=== PATIENT | female | born 1970 | race African-American/Black ===

== ENCOUNTER 2019-03-31 08:58 | Outpatient (CLI) | payer OTHER, SELFPAY ==
--- NOTE | 2019-03-31 | EST_ITS ---
Patient Info Name: Davion Massey Age: 48 years : 1970 Gender: Female Ht: 67 in Wt: 247 lbs BSA: 2.35 m2 Exam Date: 03/31/2019 9:40 AM Exam Location: [facility] Pulmonary Patient Status: Outpatient Admit Date: 03/31/2019 Staff Ordering Physician: PHYSICIAN NOT ON STAFF, NONSTAFF Preservative Filler Machine Operator: Ty Christopher RDCS, RT Attending Provider: SAMIR DELA CRUZ DO Exercise Technologist: Daysi Saldana RDCS Exercise Physician: Samir Dela Cruz DO Exam Type: CA stress echo Study Info Indications R07.9 - Chest pain, unspecified Treadmill exercise stress echocardiogram is performed. Summary 1. 1. Negative David exercise stress test for ischemic ST changes by ECG criteria. 2. 2. Reduced functional capacity, achieving 7 METs of workload. 3. 3. Appropriate HR response to exercise. 4. 4. Appropriate HR recovery at 1 minute post exercise. 5. 5. Negative stress echocardiogram for ischemia by wall motion analysis. 6. 6. Patient informed of the above results. Stress Echo Findings Left Ventricle Appropriate increase in LV endocardial thickening with systole. Appropriate augmentation of contractility with systole. No wall motion abnormality. Left Ventricle Normal LV systolic function, no wall motion abnormality. Protocol: David Stress ECG Details Stage: REST Duration (min): 2 min : 54 sec Speed (mph): 0.0 Grade (%): 0 HR (bpm): 64 SBP (mmHg): 122 DBP (mmHg): 93 METS: --- Stage: REST Duration (min): 15 min : 15 sec Speed (mph): 0.0 Grade (%): 0 HR (bpm): 74 SBP (mmHg): 122 DBP (mmHg): 93 METS: --- Stage: STAGE 1 Duration (min): 1 min : 0 sec Speed (mph): 1.7 Grade (%): 10 HR (bpm): 109 SBP (mmHg): 122 DBP (mmHg): 93 METS: --- Stage: STAGE 1 Duration (min): 2 min : 0 sec Speed (mph): 1.7 Grade (%): 10 HR (bpm): 137 SBP (mmHg): 122 DBP (mmHg): 93 METS: --- Stage: STAGE 1 Duration (min): 3 min : 0 sec Speed (mph): 1.7 Grade (%): 10 HR (bpm): 147 SBP (mmHg): 197 DBP (mmHg): 127 METS: --- Stage: STAGE 2 Duration (min): 1 min : 0 sec Speed (mph): 2.5 Grade (%): 12 HR (bpm): 154 SBP (mmHg): 197 DBP (mmHg): 127 METS: --- Stage: STAGE 2 Duration (min): 1 min : 31 sec Speed (mph): 0.0 Grade (%): 0 HR (bpm): 157 SBP (mmHg): 197 DBP (mmHg): 127 METS: --- Stage: RECOVERY Duration (min): 0 min : 28 sec Speed (mph): 0.0 Grade (%): 0 HR (bpm): 138 SBP (mmHg): 171 DBP (mmHg): 51 METS: --- Stage: RECOVERY Duration (min): 1 min : 28 sec Speed (mph): 0.0 Grade (%): 0 HR (bpm): 118 SBP (mmHg): 171 DBP (mmHg): 51 METS: --- Stage: RECOVERY Duration (min): 2 min : 28 sec Speed (mph): 0.0 Grade (%): 0 HR (bpm): 105 SBP (mmHg): 171 DBP (mmHg): 51 METS: --- Stage: RECOVERY Duration (min): 3 min : 28 sec Speed (mph): 0.0 Grade (%): 0 HR (bpm): 93
== END 2019-03-31 08:59 | disposition home or self-care (01) ==
DX: R07.9 Chest pain, unspecified (principal)
CPT/HCPCS: 93351

== ENCOUNTER 2023-09-09 08:44 | Outpatient (CLI) | payer OTHER, SELFPAY ==
--- NOTE | ~2023-09-09 | XR_ITS ---
EXAMINATION: XR barium swallow w SBFT DATE: 09/09/2023 10:22 INDICATION: Dysphagia TECHNIQUE: The patient drank thick barium, gas-producing crystals, and thin barium. Fluoroscopic spot radiographs of the hypopharynx, esophagus, stomach and proximal small bowel were obtained. Additiona l overhead radiographs were obtained during the transit through the small bowel. Spot fluoroscopic i mages of the small bowel were obtained upon contrast reaching the cecum. Fluoroscopy exposure time wa s minutes. Fluoroscopy exposure time was 2.0 minutes. Total DAP was 99.155 Gycm^2. A total of 1186 fl uoroscopic images were recorded. COMPARISON: None. FINDINGS: The pharynx is symmetric and without evidence of mass lesion or mucosal irregularity. The esophagus i s normal without mass or stricture. Esophageal motility is normal. There is a small sliding-type hiat al hernia with gastroesophageal junction approximately 3.5 cm above level of the diaphragm. There was no gastroesophageal reflux with provocative maneuvers. Transit time from the stomach to proximal colon was approximately 30 minutes. There is normal caliber and mucosal fold pattern throughout the small bowel. Terminal ileum is normal. No tethering or abno rmal mass effect observed upon the small bowel with real-time fluoroscopy. IMPRESSION: 1. Small sliding-type hiatal hernia without observed gastroesophageal reflux with provocative maneuve rs. 2. Normal small bowel follow-through. Reviewed, dictated and finalized at location A. IMPRESSION: 1. Small sliding-type hiatal hernia without observed gastroesophageal reflux wi th provocative maneuvers. 2. Normal small bowel follow-through.
== END 2023-09-09 08:45 | disposition home or self-care (01) ==
LOC: ANHIMG 08:46
PROVIDERS: PCP Family Medicine; Visit Provider Nurse Practitioner Family
DX: K21.9 Gastro-esophageal reflux disease without esophagitis (principal); K29.70 Gastritis, unspecified, without bleeding; K44.9 Diaphragmatic hernia without obstruction or gangrene; R10.13 Epigastric pain; R11.0 Nausea; R13.10 Dysphagia, unspecified
CPT/HCPCS: 74240

== ENCOUNTER 2023-12-17 07:54 | Outpatient (CLI) | payer OTHER, SELFPAY ==
--- NOTE | ~2023-12-17 | NM_ITS ---
EXAMINATION: NM hepatobiliary wo pharm DATE: 12/17/2023 10:38 INDICATION: Evaluate gallbladder function. COMPARISON: None. TECHNIQUE: 4.6 mCi Tc-99m mebrofenin (Choletec) was administered intravenously. Scintigraphic images of the abdomen were obtained for one hour. At the 1 hour time point, the patient drank 8 oz Ensure, and imaging was continued for 60 minutes. Gallbladder ejection fraction was calculated by the technol ogist. FINDINGS: There is normal clearance of radiotracer from the blood pool. There is homogeneous tracer u ptake by the liver. Activity progresses to the bowel and gallbladder. The gallbladder ejection fract ion (GBEF) is 87%. Note that with this technique, normal GBEF >= 33%. IMPRESSION: 1. Normal hepatobiliary scan Reviewed, dictated and finalized at location A.
== END 2023-12-17 07:55 | disposition home or self-care (01) ==
LOC: ANHIMG 07:56
PROVIDERS: PCP Family Medicine; Visit Provider Nurse Practitioner Family
DX: R14.0 Abdominal distension (gaseous) (principal); R63.0 Anorexia; R10.13 Epigastric pain; R11.0 Nausea; K21.9 Gastro-esophageal reflux disease without esophagitis
CPT/HCPCS: 78226; A9537